=== PATIENT | female | born 1975 | race African-American/Black ===

== ENCOUNTER 2019-11-02 19:54 | Emergency (ER) | payer SELFPAY ==
[~2019-11-02] VITALS: Ht 170.2 cm; Wt 113.6 kg
[2019-11-02 20:10] VITALS: Ht 170.2 cm; Wt 113.6 kg
[2019-11-02] MEDS ORDERED: DEPAKOTE500 MG PO (20:11)
[2019-11-02] MEDS ORDERED: RISPERDAL1 MG PO (20:12)
[2019-11-02] MEDS ORDERED: MINIPRESS 5 MG C5 MG PO (20:13)
[2019-11-02 21:38] LABS: UDS - AMPHET NEGATIVE QUAL (NEGATIVE); UDS - BARB NEGATIVE QUAL (NEGATIVE); UDS - BENZO NEGATIVE QUAL (NEGATIVE); UDS - COCAINE NEGATIVE QUAL (NEGATIVE); UDS - OPIATE NEGATIVE QUAL (NEGATIVE); UDS - PCP NEGATIVE QUAL (NEGATIVE); UDS - THC NEGATIVE QUAL (NEGATIVE)
[2019-11-02 21:57] LABS: BASOPHILS 0.1 % (0-2); EOSINOPHILS 0 % (0-7); HEMATOCRIT 34.8 % (36.0-48.0); HEMOGLOBIN 10.9 g/dL (12-16); IMMATURE GRANULOCYTES 0.1 % (0-5); LYMPHOCYTES 34.4 % (15-50); MCH 26.7 pg (26.0-34.0); MCHC 31.3 g/dL (31.0-37.0); MCV 85.1 fL (80.0-100.0); MEAN PLATELET VOLUME 11.2 fL (7.4-10.4); MONOCYTES 12.7 % (2-11); NEUTROPHILS 52.7 % (40-80); PLATELET COUNT 226 10x3/uL (130-400); RBC 4.09 10x6/uL (4.00-5.40); RDW 17.3 % (11.5-14.5); WBC 7.6 10x3/uL (4.8-10.8)
[2019-11-02 22:10] LABS: ANION GAP 10.6 mmol/L (8-16); CALCIUM 8.6 mg/dL (8.5-10.1); CARBON DIOXIDE 27.4 mmol/L (21.0-32.0); CREATININE - SERUM 0.9 mg/dL (0.6-1.3)
[2019-11-02 22:10] LABS: BILIRUBIN NEGATIVE (NEGATIVE); KETONE NEGATIVE (NEGATIVE); NITRITE NEGATIVE (NEGATIVE); UROBILINOGEN NORMAL mg/dL (< 2)
[2019-11-02 22:11] LABS: HCG URINE NEGATIVE (NEGATIVE)
[2019-11-02 22:14] LABS: BILIRUBIN - TOTAL 0.16 mg/dL (0.2-1.3); MAGNESIUM - SERUM 1.9 mg/dL (1.8-2.4); PROTEIN - SERUM 7.3 g/dL (6.4-8.2); VALPROIC ACID (DEPAKOTE) 17.4 ug/mL (50.0-100.0)
--- NOTE | 2019-11-03 00:14 | NUR ---
DR. MARIE NOTIFIED AND REVIEWED PT'S BEHAVIOR AND ASSESSMENT RESULTS. PT IS A LOW RISK PER DR. MARIE. DR. MARIE STATED TO GIVE RESOURCES TO PT AT TIME OF DISCHARGE. NO FURTHER ORDERS AT THIS TIME. PT REFUSED RESOURCES.
[2019-11-03 01:21] VITALS: BP 122/87
== END 2019-11-03 01:25 | disposition home or self-care (01) ==
LOC: D.ER 19:54
PROVIDERS: Family Medicine
DX: R41.89 Other symptoms and signs involving cognitive functions and awareness (principal); Z86.59 Personal history of other mental and behavioral disorders; Z76.0 Encounter for issue of repeat prescription

== ENCOUNTER 2019-11-03 07:00 | Observation (INO) | payer OTHER ==
[~2019-11-03] VITALS: Ht 170.2 cm; Wt 104.5 kg
[~2019-11-03 07:00] MED LIST: DEPAKOTE500 MG PO; MINIPRESS 5 MG C5 MG PO; RISPERDAL1 MG PO
[2019-11-03 07:43] LABS: BASOPHILS 0.1 % (0-2); EOSINOPHILS 0 % (0-7); HEMOGLOBIN 11.3 g/dL (12-16); IMMATURE GRANULOCYTES 0.2 % (0-5); LYMPHOCYTES 25.3 % (15-50); MCH 26.6 pg (26.0-34.0); MCHC 31.4 g/dL (31.0-37.0); MCV 84.7 fL (80.0-100.0); MEAN PLATELET VOLUME 10.6 fL (7.4-10.4); MONOCYTES 17.1 % (2-11); NEUTROPHILS 57.3 % (40-80); PLATELET COUNT 212 10x3/uL (130-400); RBC 4.25 10x6/uL (4.00-5.40); RDW 17.1 % (11.5-14.5); WBC 8.6 10x3/uL (4.8-10.8)
[2019-11-03 07:51] LABS: CALC OSMOLALITY 279 mosm/kg (275-300); CALCIUM 9.1 mg/dL (8.5-10.1); CARBON DIOXIDE 25.5 mmol/L (21.0-32.0); CHLORIDE - SERUM 105 mmol/L (98-107); CREATININE - SERUM 0.7 mg/dL (0.6-1.3); GLUCOSE 99 mg/dL (74-106); POTASSIUM - SERUM 3.8 mmol/L (3.5-5.1); SODIUM 141 mmol/L (136-145); UREA NITROGEN 9 mg/dL (7-18); eGFR NON AFRICAN AMERICAN > 90 mL/min (90-120)
[2019-11-03 08:07] LABS: ALBUMIN 3.5 g/dL (3.4-5.0); ALKALINE PHOSPHATASE 103 U/L (30-120); ALT (SGPT) 17 U/L (10-68); BILIRUBIN - TOTAL 0.18 mg/dL (0.2-1.3); CKMB 0.7 U/L (0.0-3.6); CREATINE KINASE 179 UL (21-215); PROTEIN - SERUM 8.2 g/dL (6.4-8.2)
[2019-11-03 08:08] LABS: TROPONIN-I < 0.017 ng/mL (0.000-0.060); VALPROIC ACID (DEPAKOTE) 12.4 ug/mL (50.0-100.0)
--- NOTE | 2019-11-03 08:54 | NUR ---
PT FOUND TO HAVE URINATED A LARGE AMOUNT. LINENS CHANGED, PERICARE PROVIDED, AND PT PROVIDED WITH CLEAN BRIEF, GOWN, AND WARM BLANKETS. CALL LIGHT WITHIN REACH OF PATIENT. SIDE RAILS UP X2 AND BED IN LOWEST POSITION.
[2019-11-03 09:11] LABS: BILIRUBIN NEGATIVE (NEGATIVE); KETONE NEGATIVE (NEGATIVE); NITRITE NEGATIVE (NEGATIVE); UROBILINOGEN NORMAL mg/dL (< 2)
[2019-11-03 09:14] LABS: UDS - AMPHET NEGATIVE QUAL (NEGATIVE); UDS - BARB NEGATIVE QUAL (NEGATIVE); UDS - BENZO NEGATIVE QUAL (NEGATIVE); UDS - COCAINE NEGATIVE QUAL (NEGATIVE); UDS - OPIATE NEGATIVE QUAL (NEGATIVE); UDS - PCP NEGATIVE QUAL (NEGATIVE); UDS - THC NEGATIVE QUAL (NEGATIVE)
--- NOTE | 2019-11-03 10:30 | NUR ---
PT URINATED A LARGE AMOUNT. BRIEF CHANGED AND PERICARE PERFORMED. PT LINENS CHANGED AND PLACED ON A FRESH CHUCKS.
--- NOTE | 2019-11-03 12:32 | NUR ---
COVID SWAB OBTAINED AT THIS TIME.
[2019-11-03 13:06] VITALS: BP 161/73
[2019-11-03 17:32] VITALS: BP 162/95
[2019-11-03 23:40] VITALS: BP 178/87; Ht 170.2 cm; Wt 104.5 kg
[2019-11-04] VITALS: BP 112/74
--- NOTE | 2019-11-04 04:31 | NUR ---
ASSESSED AT THE TIME OF ADMIT AND BEGINNING OF THE SHIFT. PT WAS AND IS LETHARGIC. SHE IS A POOR HISTORIAN AND NEEDS TO BE AWAKENED MORE THAN ONCE TO GET INFORMATION. SHE HAS BEEN SLEEPING ALL NIGHT SINCE ADMIT. WE HAVE PPLACED HER ON TELEMETRY ORDERED SHOWING SR 93. SHE HAS NO FLUIDS GOING AND NO O2 NEEDED
[2019-11-04 05:59] LABS: BASOPHILS 0.2 % (0-2); EOSINOPHILS 0 % (0-7); HEMATOCRIT 34.3 % (36.0-48.0); HEMOGLOBIN 10.7 g/dL (12-16); IMMATURE GRANULOCYTES 0.2 % (0-5); LYMPHOCYTES 43.4 % (15-50); MCH 26.2 pg (26.0-34.0); MCHC 31.2 g/dL (31.0-37.0); MCV 84.1 fL (80.0-100.0); MEAN PLATELET VOLUME 11.3 fL (7.4-10.4); MONOCYTES 14.1 % (2-11); NEUTROPHILS 42.1 % (40-80); PLATELET COUNT 229 10x3/uL (130-400); RBC 4.08 10x6/uL (4.00-5.40)
[2019-11-04 06:43] LABS: ALBUMIN 2.9 g/dL (3.4-5.0); ALKALINE PHOSPHATASE 88 U/L (30-120); ALT (SGPT) 14 U/L (10-68); BILIRUBIN - TOTAL 0.33 mg/dL (0.2-1.3); CALCIUM 8.4 mg/dL (8.5-10.1); CARBON DIOXIDE 24.7 mmol/L (21.0-32.0); CHLORIDE - SERUM 108 mmol/L (98-107); CKMB 0.4 U/L (0.0-3.6); CREATINE KINASE 115 UL (21-215); CREATININE - SERUM 0.7 mg/dL (0.6-1.3); GLUCOSE 94 mg/dL (74-106); POTASSIUM - SERUM 3.7 mmol/L (3.5-5.1); PROTEIN - SERUM 7.1 g/dL (6.4-8.2); SODIUM 142 mmol/L (136-145); eGFR NON AFRICAN AMERICAN > 90 mL/min (90-120)
[2019-11-04 06:44] LABS: CALC OSMOLALITY 283 mosm/kg (275-300); TROPONIN-I < 0.017 ng/mL (0.000-0.060); UREA NITROGEN 14 mg/dL (7-18)
[2019-11-04 08:49] VITALS: BP 127/70
[2019-11-04 16:53] VITALS: BP 131/75
--- NOTE | 2019-11-04 17:41 | NUR ---
0700 BEDSIDE REPORT RECEIVED ASSESSMENT COMPLETE SPEAKS IN SOFT TONE VOICE VOICES NO COMPLAINTS AT THIS TIME
--- NOTE | 2019-11-04 17:43 | NUR ---
1010 PHYSICAL THERAPY WORKING WITH PT, STATES THAT HER RIGHT KNEE WAS IN PAIN AND COULDNT COMPLETE HER WALKING EXERCISE
--- NOTE | 2019-11-04 17:46 | NUR ---
1600 PT TOOK SHOWER WITH MINIMAL ASSIST FOUND PT AMBULATING HALLS DISPLAYING NO DISCOMFORT
[2019-11-04 20:00] VITALS: BP 150/88
[2019-11-05 04:00] VITALS: BP 135/72
--- NOTE | 2019-11-05 09:02 | NUR ---
OFFERED PT REFERRAL TO TOBACCO QUITLINE. SHE DECLINED.
--- NOTE | 2019-11-05 11:00 | NUR ---
IV AND TELEMETRY DISCONTINUED AND VERBALIZED UNDERSTANDING OF DISCHARGE INSTRUCTIONS. STABLE AT TIME OF DISCHARGE.
== END 2019-11-05 11:01 | disposition home or self-care (01) ==
LOC: D.ER 07:00 → D.MS 10:03 → OBSVTIME 10:03 → D.MS 11-05 11:01
PROVIDERS: Family Medicine; ADMIT Emergency Medicine; ATTEND Emergency Medicine
DX: G40.909 Epilepsy, unspecified, not intractable, without status epilepticus (principal); R55 Syncope and collapse; F31.9 Bipolar disorder, unspecified; R41.840 Attention and concentration deficit; R41.82 Altered mental status, unspecified

== ENCOUNTER 2019-12-01 10:39 | Emergency (ER) | payer OTHER ==
[~2019-12-01] VITALS: Ht 170.2 cm; Wt 100.0 kg
[2019-12-01 10:52] VITALS: Ht 170.2 cm; Wt 100.0 kg
[2019-12-01 11:11] LABS: BILIRUBIN NEGATIVE (NEGATIVE); KETONE NEGATIVE (NEGATIVE); NITRITE NEGATIVE (NEGATIVE); UROBILINOGEN NORMAL mg/dL (< 2)
[2019-12-01] MEDS ORDERED: MINIPRESS 5 MG C5 MG PO (11:23)
[2019-12-01] MEDS ORDERED: DEPAKOTE500 MG PO (11:23)
[2019-12-01] MEDS ORDERED: RISPERDAL1 MG PO (11:23)
[2019-12-01 11:41] LABS: HCG URINE NEGATIVE (NEGATIVE)
[2019-12-01 11:45] LABS: HEMOGLOBIN 12.2 g/dL (12-16); LYMPHOCYTES 34.6 % (15-50); MCH 27.5 pg (26.0-34.0); MCHC 32.1 g/dL (31.0-37.0); MCV 85.6 fL (80.0-100.0); MEAN PLATELET VOLUME 11.1 fL (7.4-10.4); NEUTROPHILS 56.8 % (40-80); PLATELET COUNT 216 10x3/uL (130-400); RBC 4.44 10x6/uL (4.00-5.40); RDW 15.2 % (11.5-14.5); WBC 4.3 10x3/uL (4.8-10.8)
[2019-12-01 12:10] LABS: CALC OSMOLALITY 278 mosm/kg (275-300); CALCIUM 9.2 mg/dL (8.5-10.1); CARBON DIOXIDE 25.9 mmol/L (21.0-32.0); CHLORIDE - SERUM 104 mmol/L (98-107); CREATININE - SERUM 0.8 mg/dL (0.6-1.3); GLUCOSE 97 mg/dL (74-106); POTASSIUM - SERUM 3.3 mmol/L (3.5-5.1); SODIUM 141 mmol/L (136-145); UREA NITROGEN 6 mg/dL (7-18); eGFR NON AFRICAN AMERICAN 82 mL/min (90-120)
[2019-12-01 12:15] LABS: ALBUMIN 3.3 g/dL (3.4-5.0); ALKALINE PHOSPHATASE 98 U/L (30-120); ALT (SGPT) 13 U/L (10-68); BILIRUBIN - TOTAL 0.43 mg/dL (0.2-1.3); PROTEIN - SERUM 7.8 g/dL (6.4-8.2)
[2019-12-01 12:52] VITALS: BP 156/85
== END 2019-12-01 12:52 | disposition home or self-care (01) ==
LOC: D.ER 10:39
PROVIDERS: Emergency Medicine
DX: Z76.0 Encounter for issue of repeat prescription (principal); Z91.19 Patient's noncompliance with other medical treatment and regimen